=== PATIENT | female | born 1935 | race Caucasian/White ===

== ENCOUNTER 2017-03-31 16:02 | Inpatient (IN) ==
[2017-03-31] MEDS ORDERED: MORPHINE IV PRN (18:50)
--- NOTE | 2017-03-31 19:23 | HISTORY AND PHYSICAL ---
HISTORY OF PRESENT ILLNESS: Ms. 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 She was able to get up with some assistance and had a good deal of pain in the left lateral hip, was able sit down but it hurt her pretty bad so she wanted to come here. She had a CT of her pelvis. Apparently she had a fracture in the left hip. Past medical history is pretty unremarkable. She had a hysterectomy a year ago for uterine cancer and apparently had some radiation treatments following that. She has been pretty weak since that time. I think she had her gallbladder out. No real medical issues that they are aware of. She has complained of a little bit of dizziness the last couple of weeks. ALLERGIES: She is allergic to oxycodone, I think that makes her have nausea and feel bad. Macrodantin she felt made her breathe heavy. MEDICATIONS: They are going to get a list of her medications from home and will bring them up. I think she had been on some hydrocodone. REVIEW OF SYSTEMS: General: No weight gain or loss. No fever or chills. HEENT: Unremarkable. Respiratory: No increased work of breathing or dyspnea. Cardiovascular: No chest pain or tachy palpitations. Gastrointestinal: Unremarkable. Genitourinary: Unremarkable. Musculoskeletal / Neurologic: No complaints until this morning after she fell. PHYSICAL EXAMINATION: GENERAL: Well-developed, well-nourished, thin, white female, awake and alert, very pleasant. HEENT: Pupils equal, round. CVP less than 6 cm. LUNGS: Clear in all lung khan. CARDIOVASCULAR: Regular rhythm and rate without murmur or S3. ABDOMEN: Soft. SKIN: Warm and dry. EXTREMITIES: Left leg with some ecchymosis on the lateral side. On both lower extremities she does have 2+ edema from the ankles all the way up to her knees and that has been chronic so she has chronic venous insufficiency. ASSESSMENT AND PLAN: 1. Left hip fracture. We will get Orthopedics to see. I do not have a copy of the x-ray but we will need to review that. I think she will be ready for surgery in the morning. 2. Chronic venous insufficiency by report. Probably worthwhile to get an echocardiogram and look at her left ventricular function. 3. She had a hysterectomy a year ago for uterine cancer and apparently that is complete. She had some radiation treatments. 4. Of note, she is allergic to Macrodantin and oxycodone. cc: Julito Lucas MD
[2017-03-31] MEDS: NS 1,000 ML IV SCH (23:00)
[2017-03-31 23:42] LABS: BILIRUBIN URINE NEGATIVE (NEGATIVE); BLOOD URINE NEGATIVE (NEGATIVE); COLOR YELLOW; GLUCOSE URINE NEGATIVE (NEGATIVE); LEUKOCYTES URINE NEGATIVE (NEGATIVE); NITRITE URINE NEGATIVE (NEGATIVE); PH URINE 7.5; PROTEIN URINE NEGATIVE (NEGATIVE); TURBIDITY URINE CLEAR (CLEAR); UR EPITHELIAL CELLS <10 /HPF (<10); URINE BACTERIA NEGATIVE /HPF; URINE CULTURE NEEDED? NO; URINE MICRO REVIEW NEEDED? NO; URINE RBC <10 /HPF (<10); URINE SOURCE CATH; URINE WBC <10 /HPF (<10); UROBILINOGEN URINE NORMAL (NORMAL)
[2017-04-01 06:01] LABS: HEMATOCRIT 28.2 % (37.0-47.0); HEMOGLOBIN 8.9 g/dL (12.0-16.0); MCH 33.5 PG (27-31); MCHC 31.6 g/dL (33-37); MPV 10.3 FL (7.4-10.4); RBC 2.66 XMIL (4.2-5.4)
[2017-04-01 06:13] LABS: CALCIUM 7.2 mg/dL (8.8-10.2); POTASSIUM 3.4 mmol/L (3.5-5.1)
--- NOTE | 2017-04-01 12:23 | PROGRESS NOTE ---
DATE: 04/01/2017 SUBJECTIVE: This patient is lying comfortably in bed. Apparently, before coming to this hospital, she went to another in [place] and they did some images, apparently a CT scan. They brought a CD ROM and we will try to put the images in our system. She today is complaining of right hip pain. No shortness of breath, no nausea, no vomiting, no diarrhea, no constipation. OBJECTIVE: Vital Signs: Temperature 98.5 degrees, pulse 75, respiratory rate 16, blood pressure 93/34, and oxygen saturation 96% on room air. HEENT: Head normocephalic. No trauma. PERRLA. Neck: Supple. No JVD. No masses. Central trachea. Chest: Clear to auscultation. No wheezing. No rales. Abdomen: Soft, nontender, nondistended. No hepatosplenomegaly. Extremities: Right hip pain. Lower extremity edema 2+. No clubbing. No cyanosis. Pulses are present. Neurologic: The patient is alert and oriented x3. No focal neurological deficits. LABORATORY: WBC 9, hemoglobin 8.9, hematocrit 28.2, and platelets 113,000. Sodium 139, potassium 3.4, chloride 99, bicarbonate 29, BUN 14, creatinine 0.9, glucose 64, and calcium 7.2. ASSESSMENT AND PLAN: 1. Right hip fracture. The orthopedic surgeon is on board. This patient is going today for surgery. We will continue to monitor. 2. Chronic venous insufficiency, by report. Aware. 3. History of uterine cancer, status post hysterectomy. Will monitor. 4. Deep vein thrombosis prophylaxis. We are not using any kind of anticoagulation because this patient is going today for surgery. CODE STATUS: This patient is full code. ALLERGIES: She is allergic to Macrodantin and oxycodone. cc: Alex Manriquez MD
--- NOTE | 2017-04-01 13:13 | CONSULTATION ---
DATE OF CONSULTATION: 04/01/2017 CHIEF COMPLAINT: "I broke my hip." HISTORY OF PRESENT ILLNESS: This 81-year-old female status post a fall at home in [facility]. She complained of right hip pain. [facility] and found to have an impacted femoral neck fracture. She was subsequently transferred and admitted to the hospitalist service here. She reports right hip pain upon weightbearing. She denies any other injury. REVIEW OF SYSTEMS: Negative for any additional pain. PAST MEDICAL HISTORY/MEDICATIONS/ALLERGIES: Are up-to-date and accurate per her H and P at admission paperwork. EXAMINATION: Reveals her alert and oriented x3. She has no neck or back pain. There is no upper extremity pain. The right lower extremity is atraumatic. There is tenderness over the right hip on passive motion. There is some chronic edema over both lower extremities. She is nontender on motion of all joints on the left side. RADIOGRAPHS: X-rays reviewed show an impacted Garden 1 femoral neck fracture subcapital of the right hip. IMPRESSION: Impacted subcapital femoral neck fracture right hip. PLAN: We will plan a percutaneous pinning. I have discussed risks and benefits with both patient and her granddaughter and answered all questions. They are aware of risk of avascular necrosis, malunion, nonunion, failure of the surgery, infection, DVT and other imponderables and are willing to proceed. We will plan on proceeding with that later today. cc: Julian Vines MD
[2017-04-01] MEDS: NS 1,000 ML IV SCH ×2 (13:47→21:00)
[2017-04-01] MEDS ORDERED: AMIDATE ONE (16:29)
[2017-04-01] MEDS ORDERED: KEFZOL 1 GM/D5W 1 GM/50 ML IVPB ONE (17:10)
[2017-04-01] MEDS ORDERED: KETALAR ONE (17:25)
[2017-04-01] MEDS ORDERED: ROBINUL ONE (17:29)
[2017-04-01] MEDS ORDERED: DECADRON ONE (17:32)
[2017-04-01] MEDS ORDERED: OFIRMEV 1000 MG/ISOTONIC SOLN 1,000 MG/100 ML BOTTLE ONE (17:32)
[2017-04-01] MEDS ORDERED: EPHEDRINE ONE (17:38)
[2017-04-01] MEDS ORDERED: MILK OF MAGNESIA PO PRN (18:15)
[2017-04-01] MEDS ORDERED: HALDOL IV PRN (18:15)
[2017-04-01] MEDS ORDERED: ZOFRAN IV PRN (18:15)
[2017-04-01] MEDS ORDERED: MORPHINE IV PRN (18:21)
--- NOTE | 2017-04-01 18:53 | OPERATIVE NOTE ---
PROCEDURE DATE: 04/01/2017 PREOPERATIVE DIAGNOSIS: Impacted right femoral neck fracture. POSTOPERATIVE DIAGNOSIS: Impacted right femoral neck fracture. PROCEDURE: Closed reduction and percutaneous pinning right femoral neck fracture. SURGEON: Simi Vines MD. COMMERCIAL BAKING TEACHER: Sharif Hunt RN. ANESTHESIA: General. COMPLICATION: None. PROCEDURE IN DETAIL: This is 81-year-old female presents for pinning of an impacted Garden 1 femoral neck fracture. Risks, benefits, and no guarantees were discussed and she is willing to proceed. She was taken to the operating room and satisfactory anesthesia obtained. The right hip was prepped and draped in usual sterile fashion. A time-out was taken to confirm operative site, procedure, and patient. The patient was placed on the Blanding table and fluoroscopic guidance used to expose the Garden 1 femoral neck fracture. This is relatively nondisplaced. After time-out and prep and drape, 1 inch incision was made just distal to the greater trochanter along the lateral thigh. Under fluoroscopic guidance three 7.3 Synthes cannulated screw guidewires were placed across the fracture from the lateral cortex of the femur, up the neck, and into the central head of the femoral head. Care was taken to avoid any articular penetration. Three 70 length screws were placed across the fracture with secure fixation. The guidewires were removed and the C-arm used to verify accurate fracture reduction and hardware placement. The wound was irrigated and closed in layers with 2-0 Vicryl in the subcutaneous and skin berhane on the skin edges. Sterile dressing completed the closure and the patient was recovered from anesthesia and transferred to the recovery room in stable condition. No intraoperative complications were noted. Instrument count and sponge count was correct at the time of closure. cc: Julian Vines MD
[2017-04-01] MEDS ORDERED: LR 500 ML ONE (19:08)
[2017-04-01] MEDS: COLACE PO SCH (22:52)
[2017-04-01] MEDS: PERIDEX MT SCH (22:52)
[2017-04-02] MEDS ORDERED: OFIRMEV 1000 MG/ISOTONIC SOLN 1,000 MG/100 ML BOTTLE IV SCH (02:00)
[2017-04-02] MEDS: TYLENOL PO SCH ×3 (02:00→17:00)
[2017-04-02] MEDS: KEFZOL 1 GM/D5W 1 GM/50 ML IVPB IV SCH ×2 (02:00→09:11)
[2017-04-02 02:26] LABS: HEMATOCRIT 25.8 % (37.0-47.0); HEMOGLOBIN 8.1 g/dL (12.0-16.0); MCH 32.5 PG (27-31); MCHC 31.4 g/dL (33-37); MCV 103.6 FL (81-99); MPV 9.2 FL (7.4-10.4); RBC 2.49 XMIL (4.2-5.4)
[2017-04-02 02:46] LABS: CALCIUM 7.1 mg/dL (8.8-10.2); POTASSIUM 4.6 mmol/L (3.5-5.1)
--- NOTE | 2017-04-02 05:22 | EKG Report ---
Test Performed on : 04/01/2017 4:51:29 PM Test Reason : preop Blood Pressure : / mmHG Vent. Rate : 080 BPM Atrial Rate : 080 BPM P-R Int : 142 ms QRS Dur : 058 ms QT Int : 348 ms P-R-T Axes : 057 -30 060 degrees QTc Int : 401 ms Normal sinus rhythm. with sinus arrhythmia. Left axis deviation Low voltage QRS Possible Lateral infarct , age undetermined Inferior infarct , age undetermined Abnormal ECG No previous ECGs available Confirmed by Poly Stanley MD ([id number]) on 04/02/2017 1:32:36 PM
[2017-04-02] MEDS: LOVENOX SUBQ SCH (06:35)
[2017-04-02] MEDS: NS 1,000 ML IV SCH ×2 (06:35→17:01)
[2017-04-02] MEDS ORDERED: NS 500 ML IV ONE (07:06)
[2017-04-02] MEDS: FERROUS SULFATE PO SCH (09:11)
[2017-04-02] MEDS: PERIDEX MT SCH (09:11)
[2017-04-02] MEDS ORDERED: MAGNESIUM SULFATE 2 GM/S.W.I. 2 GM/50 ML IVPB IV ONE (11:12)
--- NOTE | 2017-04-02 11:43 | PROGRESS NOTE ---
DATE: 04/02/2017 SUBJECTIVE: This patient is lying comfortably in bed. She is tolerating p.o. She is not complaining of pain at this moment. She is able to move all 4 extremities. OBJECTIVE: Vital Signs: Temperature 98.6 degrees, pulse 67, respiratory rate 16, blood pressure 72/36, and oxygen saturation 98% on room air. HEENT: Head normocephalic. No trauma. PERRLA. Neck: Supple. No JVD. No masses. Central trachea. Chest: Clear to auscultation. No wheezing. No rales. Abdomen: Soft, nontender, and nondistended. No hepatosplenomegaly. Extremities: Right hip pain to palpation. Otherwise, stable. No sign of bleed. Lower extremity edema 2+. No clubbing. No cyanosis. Pulses are present. Neurologic: The patient is alert and oriented x3. No focal neurological deficits. She is hard of hearing. LABORATORY: WBC 6.9, hemoglobin 8.1, hematocrit 25.8, platelets 99,000. Sodium 138, potassium 4.6, chloride 100, bicarbonate 26, BUN 18, creatinine 0.9, calcium 7.1, magnesium 1.2. ASSESSMENT AND PLAN: 1. Impacted right femoral neck fracture, status post closed reduction and percutaneous pinning. Postoperative day #1. This patient is not complaining of pain. No signs of bleed. This patient is on anticoagulation and Physical Therapy is on board. 2. Chronic venous insufficiency by report. Aware. 3. History of uterine cancer, status post hysterectomy. Will monitor. 4. Deep vein thrombosis prophylaxis. Continue with anticoagulation. 5. Hypomagnesemia. I will replace the potassium. cc: Alex Manriquez MD
--- NOTE | 2017-04-02 16:52 | PROGRESS NOTE ---
DATE: 04/02/2017 Ms. Rendon is seen today for follow up status post fixation of her hip fracture. Her bandages are clean and dry. There is no evidence of DVT. She is slightly hypertensive which we will defer to the flower picker or geriatric physician. Overall, she is alert and oriented. Her blood pressures have been running around 80 systolic. Will make arrangements to give her 500 mL fluid bolus and ask the hospitalist to address this. From a surgical and hip standpoint there is no active bleeding or signs of DVT or infection. She can be mobilized as tolerated. We will see her back tomorrow for further care. cc: Julian Vines MD
[2017-04-02] MEDS: COLACE PO SCH (21:00)
[2017-04-03] MEDS: TYLENOL PO SCH ×3 (02:00→18:52)
[2017-04-03 05:50] LABS: HEMATOCRIT 26.3 % (37.0-47.0); HEMOGLOBIN 8.5 g/dL (12.0-16.0)
[2017-04-03] MEDS: NORCO-5 PO PRN ×2 (06:32→22:30)
[2017-04-03] MEDS: LOVENOX SUBQ SCH (06:33)
[2017-04-03 06:45] LABS: CALCIUM 6.7 mg/dL (8.8-10.2)
[2017-04-03] MEDS: NS 1,000 ML IV SCH (07:53)
[2017-04-03 08:20] LABS: ALBUMIN 1.7 g/dL (3.5-5.0); ALKALINE PHOSPHATASE 58 U/L (32-104); DIRECT BILIRUBIN < 0.20 mg/dL (0.00-0.20); GOT 9 U/L (10-30); GPT 6 U/L (10-36); TOTAL BILIRUBIN 0.15 mg/dL (0.20-1.00); TOTAL PROTEIN 3.3 g/dL (6.3-8.3)
[2017-04-03] MEDS: FERROUS SULFATE PO SCH (09:00)
[2017-04-03] MEDS: PERIDEX MT SCH ×2 (09:01→22:31)
--- NOTE | 2017-04-03 12:09 | PROGRESS NOTE ---
DATE: 04/03/2017 SUBJECTIVE: Ms. Rendon is seen today for postop care of her pinning of the hip. OBJECTIVE: The incision is clean and dry. Her blood pressure has improved. ASSESSMENT: She is stable at this point in time. PLAN: She can be discharged or transferred to a rehab center per the hospitalist. Therapy orders are touchdown weightbearing on the right lower extremity. [place] removed in 10 days. She will follow up with me in 3-4 weeks for a followup x-ray. cc: Julian Vines MD
[2017-04-03] MEDS ORDERED: CALCIUM GLUCONATE 4.65 MEQ in NS 50 ML IV ONE (15:00)
--- NOTE | 2017-04-04 00:41 | PROGRESS NOTE ---
DATE: 04/04/2017 SUBJECTIVE: When I evaluated this patient, she was seated in a chair. She was not complaining of pain. She is able to move all four extremities and she is tolerating p.o. OBJECTIVE: Vital signs: Temperature 97.9, pulse 77, respiratory rate 18, blood pressure 104/49, oxygen saturation 99 on room air. HEENT: Head normocephalic, atraumatic. BONNY. Neck: Supple. No JVD. No masses. Central trachea. Chest: Clear to auscultation. No wheezing. No rales. Abdomen: Soft, nontender, nondistended. No hepatosplenomegaly. Extremities: Right hip pain to palpation, otherwise stable. No sign of bleed. Lower extremity edema 1-2+. No clubbing. No cyanosis. Pulses are present. Neurologic: The patient is alert and oriented x3. No focal neurological deficits. She is hard of hearing. LABORATORY DATA: Hemoglobin 8.5, hematocrit 26.3. Sodium 138, potassium 4, chloride 100, bicarbonate 28, BUN 21, creatinine 1, glucose 154, calcium 6.7, magnesium 1.7, albumin 1.7, ionized calcium 1.04. ASSESSMENT AND PLAN: 1. Impacted right femoral neck fracture, status post closed reduction and percutaneous pinning, postoperative day #2. This patient is not complaining of pain. No sign of bleed. This patient is on anticoagulation and physical therapy is on board. Orthopedic Surgery recommended to remove the berhane in 10 days and follow up with them in 3-4 weeks. She can be discharged to a rehab center. He recommended touchdown weightbearing on the right lower extremity. 2. Chronic venous insufficiency by report. Aware. 3. History of uterine cancer status post hysterectomy. Will monitor. 4. Deep venous thrombosis prophylaxis. Continue with anticoagulation. 5. Hypomagnesemia, resolved. 6. Hypocalcemia. Will replace the calcium today. This patient is doing much better. She is tolerating p.o. Physical therapy is on board. I will replace the calcium today and tomorrow hopefully this patient will be discharged to a rehab center. cc: Alex Manriquez MD
[2017-04-04] MEDS: TYLENOL PO SCH ×2 (04:47→08:59)
[2017-04-04] MEDS: COLACE PO SCH (04:47)
[2017-04-04 05:51] LABS: MANUAL DIFF NEEDED? NO
[2017-04-04 06:00] LABS: BASO% 0.1 % (0.0-0.8); EOS# 0.06 X1000 (0.0-0.7); EOS% 0.9 % (0.0-10.0); HEMATOCRIT 28.1 % (37.0-47.0); HEMOGLOBIN 9.3 g/dL (12.0-16.0); IMM GRAN# 0.03 X1000 (0.0-0.04); IMM GRAN% 0.4 % (0.0-0.5); LYMPH# 0.49 X1000 (1.2-3.4); LYMPH% 7.1 % (20.5-51.1); MCHC 33.1 g/dL (33-37); MCV 99.6 FL (81-99); MONO% 7.3 % (1.7-9.3); MPV 10.1 FL (7.4-10.4); NEUT% 84.2 % (42.2-75.2); PLT 144 X1000 (130-400); RBC 2.82 XMIL (4.2-5.4)
[2017-04-04] MEDS: LOVENOX SUBQ SCH (06:23)
[2017-04-04] MEDS: NORCO-5 PO PRN (06:23)
[2017-04-04 06:32] LABS: AGAP 9; BUN 18 mg/dL (8-22); CHLORIDE 98 mmol/L (98-107); COSMO 267; POTASSIUM 3.9 mmol/L (3.5-5.1); SODIUM 133 mmol/L (136-145); TCO2 26 mmol/L (25-35)
[2017-04-04 06:33] LABS: CALCIUM 6.7 mg/dL (8.8-10.2)
[2017-04-04] MEDS ORDERED: MORPHINE IV PRN (07:31)
[2017-04-04] MEDS: PERIDEX MT SCH (08:59)
[2017-04-04] MEDS: FERROUS SULFATE PO SCH (08:59)
[2017-04-04] MEDS ORDERED: CALTRATE 600 + D PO SCH (09:00)
--- NOTE | 2017-04-04 10:58 | DISCHARGE SUMMARY ---
ADMISSION DATE: 03/31/2017 DISCHARGE DATE: 04/04/2017 CONSULTATIONS: Dr. Julian Vines with Orthopedics. PERTINENT PROCEDURES: Impacted right femoral neck fracture status post closed reduction and percutaneous pinning of the right femoral neck, performed by Dr. Vines. DISCHARGE DIAGNOSES: 1. Impacted right femoral neck fracture, status post closed reduction and percutaneous pinning. Stable. Patient being discharged to rehabilitation. 2. Chronic venous stasis, chronic venous insufficiency. Aware. 3. Uterine cancer history, status post hysterectomy. Aware. 4. Hypomagnesia. Resolved. 5. Hypocalcemia. Resolved. HOSPITAL COURSE: Briefly, Ms. Rendon is a 81-year-old female, status post a fall at home in [facility], who complained of right hip pain. She was evaluated in an outlying emergency room and found to have an impacted femoral neck fracture. She was transferred to [facility]. She was evaluated by Dr. Vines. She is now status post closed reduction and percutaneous pinning by Dr. Vines. She has worked with Physical Therapy and they have recommended rehab. Her berhane will be removed in 10 days. She will follow up with Dr. Vines in 3-4 weeks. She can be touchdown weightbearing on the right lower extremity. She is tolerating p.o. well. Vital signs at time of her discharge were temperature 97.9 degrees, heart rate 80, respirations 20, blood pressure 101/54, and O2 is 97% on room air. DISCHARGE DIET: GI soft. DISCHARGE MEDICATIONS: 1. Tylenol 500 mg p.o. q.8 hours p.r.n. 2. Allopurinol 300 mg p.o. daily. 3. Aspirin 81 mg p.o. daily. 4. Caltrate 600+ D 1 each p.o. b.i.d. 5. Coreg 25 mg p.o. b.i.d. Hold for heart rate less than 60 or systolic blood pressure less than 100. 6. Colace 200 mg p.o. at bedtime. 7. Lovenox 40 mg subcutaneous daily for 10 days. 8. Ferrous sulfate 325 mg tab daily. 9. Lasix 20 mg tab p.o. daily. 10. [place] 5/325 one each p.o. q.6 hours p.r.n. [id number] pain. 11. Synthroid 50 mcg p.o. daily. 12. Milk of Magnesia 30 mL p.o. daily for constipation. 13. Antivert 25 mg tab p.o. daily. 14. Protonix 40 mg p.o. daily. 15. Phosphorus 250 mg 2 tabs p.o. b.i.d. 16. Micro-K 10 mEq p.o. daily. 17. Simvastatin 20 mg p.o. at bedtime. FOLLOWUP: Patient is being discharged to [facility], where she will have her berhane removed in 10 days. Clean the incisions out with saline. She is to be touchdown weightbearing to the right lower extremity. She will follow up with Dr. Vines in 3-4 weeks. The patient can return to the ED for any worsening of symptoms. Dictated by JENI Onofre for Alex Manriquez MD cc: MD Berry Greenwood MD
[2017-04-04 11:35] VITALS: BP 114/53
== END 2017-04-04 13:15 | disposition swing bed (61) ==
LOC: DIRADM 16:02 → SUATTDRO 16:02 → 4N 18:31
PROVIDERS: ATTEND Internal Medicine